=== PATIENT | female | born 1990 | race Caucasian/White ===

== ENCOUNTER 2020-08-02 20:26 | Emergency (ER) | payer OTHER ==
[~2020-08-02] VITALS: Ht 175.3 cm; Wt 70.3 kg
[2020-08-02] MEDS ORDERED: PEPCID AC20 MG PO (23:15)
[2020-08-02] MEDS ORDERED: ZOFRAN8 MG PO (23:15)
== END 2020-08-02 23:33 | disposition home or self-care (01) ==
LOC: ER 20:26
DX: R11.2 Nausea with vomiting, unspecified (principal)

== ENCOUNTER 2021-02-16 09:40 | Emergency (ER) | payer OTHER ==
[~2021-02-16] VITALS: Ht 167.6 cm; Wt 73.9 kg
[~2021-02-16 09:40] MED LIST: PEPCID AC20 MG PO; ZOFRAN8 MG PO
== END 2021-02-16 14:03 | disposition home or self-care (01) ==
LOC: ER 09:40
DX: U07.1 COVID-19 (principal); J45.998 Other asthma

== ENCOUNTER 2023-01-18 18:36 | Emergency (ER) | payer OTHER ==
[~2023-01-18] VITALS: Ht 167.6 cm; Wt 63.5 kg
== END 2023-01-18 19:58 | disposition home or self-care (01) ==
LOC: ER 18:36
DX: F41.8 Other specified anxiety disorders (principal)